=== PATIENT | female | born 1985 | race African-American/Black ===

== ENCOUNTER 2017-10-25 07:15 | Inpatient (IN) ==
[2017-10-25] MEDS ORDERED: LR 1,000 ML IV PRN (07:39)
[2017-10-25] MEDS ORDERED: METHYLERGONOVINE 0.2 MG/ML INJECTION IM PRN (07:39)
[2017-10-25] MEDS ORDERED: MAG-AL + SIM ORAL LIQUID 30ml PO PRN (07:39)
[2017-10-25] MEDS ORDERED: CALCIUM CARBONATE Chewable 500mg TABLET PO PRN (07:39)
[2017-10-25] MEDS ORDERED: ACETAMINOPHEN 500 MG TABLET PO PRN (07:39)
[2017-10-25] MEDS ORDERED: LIDOCAINE 1% (10mg/ml) 2mL INJ PF SDV ID PRN (07:39)
[2017-10-25] MEDS ORDERED: CARBOPROST 250 MCG/ML INJECTION IM PRN (07:39)
[2017-10-25 08:17] VITALS: BMI 31.3
[2017-10-25] MEDS ORDERED: IBUPROFEN 800 MG TABLET PO PRN (11:26)
[2017-10-25] MEDS ORDERED: DiphenhydrAMINE 25 MG CAPSULE PO PRN (11:26)
[2017-10-25] MEDS ORDERED: HYDROCODONE/APAP 5mg/325mg TABLET PO PRN (11:26)
[2017-10-25] MEDS ORDERED: HYDROCORTISONE 2.5% CREAM 30gm RECTALLY PRN (11:26)
[2017-10-25] MEDS ORDERED: OXYTOCIN DRIP 30 UNIT/500 ML ML IV SCH (11:30)
--- NOTE | 2017-10-26 08:05 | OB/GYN Progress Note ---
OB-PP Progress Note - General PPD1 Maternal Group B Strep: Negative Maternal Rh: positive Maternal Rubella Status: Immune - Subjective Date: 10/26/17 Lochia: Minimal Pain: controlled Voiding: voiding Nausea or Vomiting Present: No - Objective Vital Signs: Last Vital Signs Temp 98.1 F 10/25/17 23:30 Pulse 88 10/25/17 23:30 Resp 16 10/25/17 23:30 BP 115/65 10/25/17 23:30 Pulse Ox 98 10/25/17 23:30 General: alert and oriented Abdomen: fundus firm, non-tender Extremities: non-tender Laboratory: Laboratory Results - last 24 hr 10/25/17 07:53 WBC 12.4 H RBC 3.85 L Hgb 11.8 L Hct 35.5 L MCV 92.2 MCH 30.6 MCHC 33.2 RDW Std Deviation 43.6 Plt Count 265 MPV 10.3 - Assessment Assessment: SP,
[2017-10-26] MEDS ORDERED: DOCUSATE CALCIUM 240 MG CAPSULE PO SCH (09:00)
[2017-10-26 09:23] VITALS: BP 105/61; PULSE 80; RESP 20; TEMP 98.3; O2SAT 97
--- NOTE | 2017-10-26 09:46 | Labor and Delivery Note ---
DATE 10/25/2017 Penny is a 32-year-old 4, para 3 at 38 weeks 5 days gestational age. She presented to [facility]aternal[facility]Child in spontaneous labor. Her membranes were ruptured artificially returning clear fluids. She progressed steadily throughout labor and only had to push for a few contractions. She had a spontaneous vaginal delivery of a viable female infant, Apgars 8/9, weight 3265 grams, name "Jhonny". There was an umbilical cord draped around the posterior neck. This was loosened as baby delivered. Baby was vigorous at delivery so she was placed on mom's abdomen and the cord clamping was delayed for approximately three minutes. The placenta delivered spontaneously. She had superficial periurethral lacerations that were not bleeding, so they were not repaired. Mom and baby tolerated the delivery well. MTDD
== END 2017-10-26 13:10 | disposition home or self-care (01) | DRG 775 ==
LOC: OBOBS 07:15 → MC 07:17
PROVIDERS: ADMIT Obstetrics & Gynecology; ATTEND Obstetrics & Gynecology